=== PATIENT | male | born 1970 | race Caucasian/White ===

== ENCOUNTER 2018-03-16 08:06 | Emergency (ER) | payer OTHER ==
[2018-03-16 08:19] VITALS: BP 142/93
--- NOTE | 2018-03-16 08:50 | UC ---
Ear Complaint HPI - HPI Summary HPI Summary: 47 yo WM c/o "ear burning" sensation on left ear W/O associated hearing loss, pain, dizziness, popping sounds or ear fullness. Deneis sinus issues or recent URI, just feels like "having fever in half of the head but localized to the left ear" . Travis flew in from [place] 2 days ago but has had no issues associated with flight. - History of Current Complaint Chief Complaint: UCEar Stated Complaint: EAR COMPLAINT Hx Obtained From: Patient Onset/Duration: Sudden Onset Pain Intensity: 3 Aggravating Factors: Nothing Alleviating Factors: Nothing - Allergies/Home Medications Allergies/Adverse Reactions: Allergies Allergy/AdvReac Type Severity Reaction Status Date / Time No Known Allergies Allergy Verified 03/16/18 08:15 Home Medications: Home Medications NK [No Home Medications Reported] 03/16/18 [History Confirmed 03/16/18] PMH/Surg Hx/FS Hx/Imm Hx Previously Healthy: Yes - Surgical History Surgical History: Yes Surgery Procedure, Year, and Place: lasic eye surgery. skin cyst removed as child. - Social History Alcohol Use: Rare Substance Use Type: None Smoking Status (MU): Never Smoked Tobacco Review of Systems Constitutional: Negative Skin: Negative Eyes: Negative ENT: Other - "Ear burning sensation" Respiratory: Negative Cardiovascular: Negative Gastrointestinal: Negative Genitourinary: Negative Motor: Negative Neurovascular: Negative Musculoskeletal: Negative Neurological: Negative Psychological: Negative All Other Systems Reviewed And Are Negative: Yes Physical Exam Triage Information Reviewed: Yes Vital Signs: Initial Vital Signs Temp 36.7 C 03/16/18 08:15 Pulse 60 03/16/18 08:15 Resp 18 03/16/18 08:15 BP 142/93 03/16/18 08:15 Pulse Ox 97 03/16/18 08:15 Eye Exam: Normal ENT Exam: Normal ENT: Positive: Hearing grossly normal, Pharynx normal, TMs normal, Uvula midline , Other - NEg tenderness with pulling of pinna or tragus. Negative: Pharyngeal erythema, Nasal congestion, Nasal drainage, TM bulging, TM dull, TM red, Tonsillar swelling, Tonsillar exudate, Trismus, Muffled voice, Hoarse voice, Dental tenderness, Sinus tenderness Dental Exam: Normal Neck exam: Normal Neck: Positive: 1 Respiratory Exam: Normal Cardiovascular Exam: Normal Abdominal Exam: Normal Musculoskeletal Exam: Normal Neurological Exam: Normal Psychological Exam: Normal Skin Exam: Normal Ear Complaint Course/Dx - Course Course Of Treatment: COmpletely neg external and TM exam,. "burning sensation" (a precursor to shingles?)- advised f/u with ENT - Differential Dx/Diagnosis Provider Diagnoses: Ear paresthesia Discharge - Sign-Out/Discharge Documenting (check all that apply): Discharge/Admit/Transfer - Discharge Plan Condition: Stable Disposition: HOME Patient Education Materials: Earache (ED) Referrals: Raphael Olsen MD [Medical Doctor] - Additional Instructions: follow up with ENT adelina - Billing Disposition and Condition Condition: STABLE Disposition: HOME
== END 2018-03-16 08:47 | disposition home or self-care (01) ==
LOC: UCEAST 08:06
DX: R20.2 Paresthesia of skin (principal)
CPT/HCPCS: 99201; G0463